=== PATIENT | male | born 1970 | race Two or more races ===

== ENCOUNTER 2016-12-15 14:41 | Emergency (ER) | payer OTHER ==
[2016-12-15] MEDS ORDERED: PREDNISONE 20 MG TABLET ONE (15:08)
== END 2016-12-15 15:29 | disposition home or self-care (01) ==
LOC: ED 14:41
DX: M10.071 Idiopathic gout, right ankle and foot (principal); F17.210 Nicotine dependence, cigarettes, uncomplicated